=== PATIENT | female | born 1945 | race Caucasian/White ===

== ENCOUNTER 2017-12-29 07:54 | Emergency (ER) | payer OTHER ==
--- NOTE | 2017-12-29 08:37 | EDPHY ---
H & P Time Seen by Provider: 12/29/17 08:01 HPI/ROS: CHIEF COMPLAINT: Right foot pain HISTORY OF PRESENT ILLNESS: [age]-year-old female presents emergency department right foot pain and swelling which has been since December 14. She can recall no specific injury. She has been walking more frequently for exercise. Foot has been swollen, although the swelling has diminished most recently. She did see her primary care physician who placed on antibiotics for possible cellulitis. No fevers. Top of the foot is slightly red but not necessarily warm according to the patient. No calf pain. REVIEW OF SYSTEMS: Aside from elements discussed in the HPI, a comprehensive 10-point review of systems was reviewed and is negative. PAST MEDICAL HISTORY: Patient denies. She does report that she was recently told that she was developing some renal insufficiency. SOCIAL HISTORY: Former smoker. Lives in [place] GENERAL APPEARANCE: Pleasant, alert, no respiratory distress. FOCUSED EXAM OF right lower extremity: Full range of motion at the knee. Calf is soft, nontender, no swelling. Foot: mild diffuse swelling across dorsum of the foot. Patient indicates the area of maximal pain is over the distal 3rd metatarsal. Faint erythema. No warmth. Thickened nails on both feet, with surrounding erythema. Dorsalis pedis and posterior tibial pulses are intact. No tenderness at the ankle. Smoking Status: Former smoker Constitutional: Initial Vital Signs Temperature (C) 36.4 C 12/29/17 08:01 Heart Rate 104 H 12/29/17 08:01 Respiratory Rate 16 12/29/17 08:01 Blood Pressure 151/74 H 12/29/17 08:01 O2 Sat (%) 97 12/29/17 08:01 O2 Delivery Mode Room Air Allergies/Adverse Reactions: NIACIN Adverse Reaction (Unknown, Uncoded 12/29/17 07:59) PHEONBARB Adverse Reaction (Uncoded 12/29/17 07:59) Hypotension Home Medications: Medication Instructions Recorded ALBUTEROL SULFATE 12/29/17 Carafate Oral Liquid 100 mg/ml 12/29/17 Proair Hfa 12/29/17 Vitamin B-1 200mg/2ml 12/29/17 MDM/Departure - MDM Imaging: I viewed and interpreted images myself ED Course/Re-evaluation: X-ray demonstrates healing fracture 3rd metatarsal. X-rays reviewed with the patient. Placed in a boot. Given referral to Dr. Cedeno for Ortho. See discharge instructions. Differential Diagnosis: Differential diagnosis for the patient's complaints of pain was considered including but not limited to contusion, stress fracture, fracture, overuse syndrome, foot sprain, cellulitis. - Depart Disposition: Home, Routine, Self-Care Clinical Impression: Fracture of third metatarsal bone of right foot Qualifiers: Encounter type: initial encounter Fracture type: closed Fracture alignment: nondisplaced Qualified Code(s): S92.334A - Nondisplaced fracture of third metatarsal bone, right foot, initial encounter for closed fracture Condition: Good Instructions: Foot Fracture in Adults (ED) Additional Instructions: I recommend ibuprofen 400 mg every 6-8 hours for pain and for anti- inflammatories. It is okay if you walk in the boot, however I would avoid excessive walking and activities until you are seen by Orthopedic surgery. You been given referral to Dr. Cedeno. You may follow up with him or 1 of his colleagues or with the PA early next week. Please call the office for an appointment and be sure the office is aware this is an emergency department follow-up visit. You have also been given referral to Dr Sanchez. She is on-call today for patients who needed primary care provider. You may call her office for follow- up appointment. When you look at your lab work from her previous providers, the BUN and creatinine are what indicate kidney function. BUN (range is 7.0-23.0) Creatinine (range is 0.6-1.0) Referrals: Adan Cedeno MD [Medical Doctor] - As per Instructions Alicia Sanchez MD [Medical Doctor] - As per Instructions
[2017-12-29] MEDS ORDERED: IBUPROFEN 200 MG TAB PO ONE (08:48)
[2017-12-29 09:07] VITALS: BP 140/77
== END 2017-12-29 09:06 | disposition home or self-care (01) ==
LOC: CED 07:54
DX: S92.334A Nondisplaced fracture of third metatarsal bone, right foot, initial encounter for closed fracture (principal); Z87.891 Personal history of nicotine dependence; X58.XXXA Exposure to other specified factors, initial encounter
CPT/HCPCS: 73630; 99283; L4386